=== PATIENT | female | born 1970 | race American Indian/Alaskan Native ===

== ENCOUNTER 2017-04-20 07:54 | Emergency (ER) | payer MEDICARE ==
[2017-04-20 08:26] LABS: Eosinophils % (Auto) 1.6 % (0.0-4.3); Hemoglobin 11.2 gm/dl (10.1-14.3); Mean Corpuscular HGB Conc 32 % (30-34); Mean Corpuscular Volume 81 fl (79-97); Platelet Count 405 K/mm3 (140-440); Red Blood Count 4.34 M/mm3 (3.65-5.03); Red Cell Distribution Width 17.6 % (13.2-15.2); White Blood Count 11.5 K/mm3 (4.5-11.0)
[2017-04-20 08:35] LABS: Mean Corpuscular Hemoglobin 26 pg (28-32)
[2017-04-20 08:36] LABS: Anion Gap 18 mmol/L; BUN/Creatinine Ratio 13.33; Blood Urea Nitrogen 8 mg/dL (7-17); Calcium 8.7 mg/dL (8.4-10.2); Carbon Dioxide 22 mmol/L (22-30); Glucose 132 mg/dL (65-100); Potassium 3.7 mmol/L (3.6-5.0); Sodium 140 mmol/L (137-145)
[2017-04-21 01:41] LABS: Urine Drugs of Abuse Note Disclamer
[2017-04-21 01:49] LABS: Bilirubin,Urine NEG (Negative); Blood,Urine LG (Negative); Ketones,Urine NEG (Negative); Leukocyte Esterase,Urine SM (Negative); Nitrite,Urine NEG (Negative); Urobilinogen,Urine < 2.0 mg/dL (<2.0)
--- NOTE | 2017-04-21 01:50 | Emergency Department Report ---
ED Psych HPI - General Chief Complaint: Psych Stated Complaint: SUICIDAL Time Seen by Provider: 04/20/17 23:25 Source: patient Mode of arrival: Ambulatory - History of Present Illness Initial Comments: 47-year-old female presenting to the emergency department complaining of suicidal ideation. Patient states she has been off her meds for quite some time and she's having increasing thoughts of hurting herself, she has no plan. Patient denies HI. Patient denies audio hallucinations and visual hallucinations. Patient has no medical complaints at this time MD Complaint: suicidal ideation -: Gradual Associated Psychiatric Symptoms: depression, suicidal ideation History of same: Yes Quality: constant Improves With: none Worsens With: none Context: not taking psychiatric Associated Symptoms: denies other symptoms If Self Harm: admits thoughts of - Related Data Home Medications Medication Instructions Recorded Confirmed Last Taken risperiDONE [RisperDAL] 4 mg PO QHS 07/12/15 04/20/17 Unknown traZODone [Desyrel] 100 mg PO QHS 07/12/15 04/20/17 Unknown ARIPiprazole [Abilify TAB] 1 tab PO DAILY 04/20/17 04/20/17 Unknown Previous Rx's Medication Instructions Recorded Last Taken Type Nitrofurantoin [place]/M-Cryst 100 mg PO Q12HR #20 capsule 04/21/17 Unknown Rx [Macrobid CAP] Allergies Allergy/AdvReac Type Severity Reaction Status Date / Time Penicillins Allergy Unknown Verified 04/20/17 08:10 ED Review of Systems ROS: Stated complaint: SUICIDAL Other details as noted in HPI Comment: All other systems reviewed and negative ED Past Medical Hx - Past Medical History Hx Psychiatric Treatment: Yes (BIPOLAR / MANIC SCHIZOAFFECTIVE) Additional medical history: CHRONIC KNEE PAIN - Surgical History Additional Surgical History: jaw surgery - Social History Smoking Status: Former Smoker Substance Use Type: Cocaine - Medications Home Medications: Home Medications Medication Instructions Recorded Confirmed Last Taken Type risperiDONE [RisperDAL] 4 mg PO QHS 07/12/15 04/20/17 Unknown History traZODone [Desyrel] 100 mg PO QHS 07/12/15 04/20/17 Unknown History ARIPiprazole [Abilify TAB] 1 tab PO DAILY 04/20/17 04/20/17 Unknown History Nitrofurantoin [place]/M-Cryst 100 mg PO Q12HR #20 capsule 04/21/17 Unknown Rx [Macrobid CAP] ED Physical Exam - General Limitations: No Limitations General appearance: alert, in no apparent distress - Head Head exam: Present: atraumatic, normocephalic - Eye Eye exam: Present: normal appearance - ENT ENT exam: Present: mucous membranes moist - Neck Neck exam: Present: normal inspection - Respiratory Respiratory exam: Present: normal lung sounds bilaterally. Absent: respiratory distress - Cardiovascular Cardiovascular Exam: Present: regular rate, normal rhythm. Absent: systolic murmur, diastolic murmur, rubs, gallop - GI/Abdominal GI/Abdominal exam: Present: soft, normal bowel sounds - Extremities Exam Extremities exam: Present: normal inspection - Back Exam Back exam: Present: normal inspection - Neurological Exam Neurological exam: Present: alert, oriented X3 - Psychiatric Psychiatric exam: Present: normal affect, normal mood, suicidal ideation (no plan ) - Skin Skin exam: Present: warm, dry, intact, normal color. Absent: rash ED Course Vital Signs 04/20/17 04/20/17 04/20/17 08:07 19:26 22:53 Temperature 98.2 F Pulse Rate 96 H 92 H Respiratory 17 14 20 Rate Blood Pressure 155/90 158/92 O2 Sat by Pulse 98 100 Oximetry ED Medical Decision Making - Lab Data Result diagrams: 04/20/17 08:11 04/20/17 08:11 - Medical Decision Making 47-year-old female presenting to the emergency department complaining of SI. 1013 signed and placed in chart. dockworker Sudhakar will attempt to find patient placement anchor. I will treat patient for UTI as well Critical Care Time: No Critical care attestation.: If time is entered above; I have spent that time in minutes in the direct care of this critically ill patient, excluding procedure time. ED Disposition Clinical Impression: Suicidal thoughts, UTI (urinary tract infection) Disposition: [id number] PSY HOSP/PSY UNIT Is pt being admited?: No Does the pt Need Aspirin: No Condition: Stable Prescriptions: Nitrofurantoin [place]/M-Cryst [Macrobid CAP] 100 mg PO Q12HR #20 capsule Referrals: PRIMARY CARE, [Primary Care Provider] - 3-5 Days SUDHAKAR HIGH MD, PHD [Staff Physician] - 3-5 Days Time of Disposition: 05:51
[2017-04-21 01:53] LABS: RBC,Urine > 182.0 /HPF (0.0-6.0)
[2017-04-21] MEDS ORDERED: MACROBID PO ONE (05:46)
[2017-04-21] MEDS ORDERED: BENADRYL PO PRN (16:45)
--- NOTE | 2017-04-21 16:56 | Consultation ---
History of Present Illness - Reason for Consult Consult date: 04/21/17 Reason for consult: Mental Health Evaluation Requesting physician: MIKKI TIRADO - Chief Complaint Chief complaint: "I need help" - History of Present Psychiatric Illness 47-year-old female presenting to the emergency department complaining of suicidal ideation. Today patient is cooperative, but very fidgety. She had a hard time staying still during our assessment. She stated that she is suicidal with a plan to cut her wrist. She stated that she has attempted suicide in the past by cutting her wrist. She stated no one loves her. She stated that she don' t have family or close friends. She stated that she don't have a job and have dealt with selfish men in the past. She stated that she have nothing to live, and stated, "I just want to ." She stated the voices she hear tell her she should " and go to hell." She denies HI's and VH's. She stated that she have taken, risperdal, trazodone, and depakote in the past." She stated the depakote made her gain weight. She stated that she smoke crack to self medicate. She denies alcohol consumption. Medications and Allergies Allergies Allergy/AdvReac Type Severity Reaction Status Date / Time Penicillins Allergy Unknown Verified 04/20/17 08:10 Home Medications Medication Instructions Recorded Confirmed Last Taken Type risperiDONE [RisperDAL] 4 mg PO QHS 07/12/15 04/20/17 Unknown History traZODone [Desyrel] 100 mg PO QHS 07/12/15 04/20/17 Unknown History ARIPiprazole [Abilify TAB] 1 tab PO DAILY 04/20/17 04/20/17 Unknown History Nitrofurantoin [place]/M-Cryst 100 mg PO Q12HR #20 capsule 04/21/17 Unknown Rx [Macrobid CAP] Active Meds: Active Medications Benztropine Mesylate (Cogentin) 0.5 mg PO HS BRIAN Diphenhydramine HCl (Benadryl) 25 mg PO HS PRN PRN Reason: Sleep [place] Carbonate (Eskalith) 300 mg PO Q12H BRIAN Risperidone (Risperdal) 1 mg PO HS BRIAN Past psychiatric history - Past Medical History Past Medical History: No medical history Past Surgical History: Other (jaw surgery) - past Psychiatric treatment and history Psych: Bipolar, Schizophrenia psychiatric treatment history: Multiple inpatient setting per the patient. Denies a fam psy hx. - Social History Social history: other (10 grade education, live with boyfriend) Mental Status Exam - Vital signs Last Vital Signs Temp 98.7 F 04/21/17 14:10 Pulse 100 H 04/21/17 14:10 Resp 20 04/21/17 14:10 BP 125/72 04/21/17 14:10 Pulse Ox 98 04/21/17 14:10 - Exam Narrative exam: ROS: (+) manic MSE: Appearance: cooperative Behavior: good eye contact Speech: regular rate and tone Mood: "I am okay" Affect: congruent to mood Thought Process: circumstantial Thought Content: denies HI's and VH's Motor Activity: fidgety Cognition: a/ox 3 Insight: limited Judgment: limited Results Result Diagrams: 04/20/17 08:11 04/20/17 08:11 Abnormal lab results 04/21/17 Range/Units 01:33 Urine WBC (Auto) 124.0 H (0.0-6.0) /HPF All other labs normal. Assessment and Plan Assessment and plan: Impression: Unspecified Mood DO, Susbstance Use DO (Cocaine). Today patient is cooperative, but very fidgety. She had a hard time staying still during our assessment. She stated that she is suicidal with a plan to cut her wrist. She stated that she has attempted suicide in the past by cutting her wrist. She stated no one loves her. She stated that she don't have family or close friends. She stated that she don't have a job and have dealt with selfish men in the past. She stated she have nothing to live, she stated, "I just want to ." She denies HI's and VH's. DD: R/O Bipolar, Schizoaffective DO Recommendation/Plan: Continue 1013 with placement to inpatient psy services. Start [place] 300 mg BID for mood, Risperdal 1 mg PO HS for mood/psyhotic symptoms, Cogention 0.5 mg PO HS for EPS prevention, and Benadryl 25 mg PO HS PRN for sleep. Discussed possible metabolic side effects of Risperdal and side effects of [place].
[2017-04-21] MEDS ORDERED: TESSALON PERLES PO ONE (20:16)
[2017-04-21 20:44] VITALS: BP 133/88
[2017-04-21] MEDS ORDERED: ESKALITH PO SCH (22:00)
[2017-04-21] MEDS ORDERED: RisperDAL PO SCH (22:00)
[2017-04-21] MEDS ORDERED: COGENTIN PO SCH (22:00)
== END 2017-04-21 22:33 ==
LOC: ED 07:54 → EEVIPCON 07:54 → ED 04-21 22:33
DX: R45.851 Suicidal ideations (principal); N39.0 Urinary tract infection, site not specified; F31.9 Bipolar disorder, unspecified; F25.0 Schizoaffective disorder, bipolar type; Z87.891 Personal history of nicotine dependence
CPT/HCPCS: 36415; 80048; 80307; 81001; 84443; 84703; 85025; 99285; G0480; 80320